=== PATIENT | female | born 2000 | race Caucasian/White ===

== ENCOUNTER 2023-11-20 17:56 | Emergency (ER) | payer MEDICAID ==
[~2023-11-20] VITALS: Ht 160 cm; Wt 100.0 kg
[2023-11-20 17:59] VITALS: O2SAT 98
[2023-11-20 20:46] LABS: CLARITY URINE CLEAR (CLEAR); COLOR URINE YELLOW (YELLOW); GLUCOSE URINE NEGATIVE (NEGATIVE); KETONES URINE 2+ (NEGATIVE); LEUKOCYTE ESTERASE URINE TRACE (NEGATIVE); NITRITE URINE NEGATIVE (NEGATIVE); OCCULT BLOOD URINE NEGATIVE (NEGATIVE); PROTEIN URINE NEGATIVE (NEGATIVE); SPECIFIC GRAVITY URINE 1.012 (1.005-1.030)
[2023-11-20 20:57] LABS: *AMPHETAMINES SCREEN URINE NEGATIVE (NEGATIVE); *BARBITURATES SCREEN URINE NEGATIVE (NEGATIVE); *BENZODIAZEPINES SCREEN URINE NEGATIVE (NEGATIVE); *COCAINE SCREEN URINE NEGATIVE (NEGATIVE)
[2023-11-20 20:58] LABS: CANNABINOID URINE SCREEN NEGATIVE (NEGATIVE); ECSTASY MDMA SCREEN URINE NEGATIVE (NEGATIVE); METHADONE URINE SCREEN NEGATIVE (NEGATIVE); OPIATES URINE SCREEN NEGATIVE (NEGATIVE); PHENCYCLIDINE URINE SCREEN NEGATIVE (NEGATIVE)
[2023-11-20 21:16] LABS: BASOPHILS % 0.7 % (0.0-2.0); EOSINOPHILS % 0.4 % (0.0-5.0); HEMATOCRIT. 41.9 % (36.0-48.0); HEMOGLOBIN. 14.2 g/dL (12.0-16.0); LYMPHOCYTES % 28.6 % (20.0-50.0); MEAN CORPUSCULAR HGB CONC 33.8 g/dL (31.0-37.0); MEAN CORPUSCULAR VOLUME 94.7 fL (81.0-99.0); MEAN PLATELET VOLUME 9.1 fl (7.4-10.4); MONOCYTES % 6.6 % (2.0-8.0); NEUTROPHILS % 63.7 % (40.0-76.0); PLATELET 335 x1000/uL (130-400); RED BLOOD CELL COUNT 4.42 mill/uL (4.2-5.4); RED CELL DISTRIBUTION WIDTH 13.4 % (11.6-14.6); WHITE BLOOD COUNT 11.5 x1000/uL (4.5-11.0)
[2023-11-20 21:17] LABS: BACTERIA URINE TRACE; RBC URINE 0-2 /hpf (0-2); SQUAMOUS EPITHELIAL CELL URINE 1+ /lpf (RARE/1+); WBC URINE 0-2 /hpf (0-2)
[2023-11-20 21:21] LABS: CHLORIDE 107 mEq/L (98-107); POTASSIUM 3.6 mEq/L (3.5-5.1); SODIUM 139 mEq/L (136-145)
[2023-11-20 21:22] LABS: CALCIUM 9.7 mg/dL (8.7-10.4); CARBON DIOXIDE 23 mEq/L (21-32)
[2023-11-20 21:27] LABS: CREATININE 0.6 mg/dL (0.6-1.0); GLUCOSE 98 mg/dL (70-105); UREA NITROGEN BLOOD 7 mg/dL (9-23)
[2023-11-20 21:28] LABS: ETHANOL BLOOD < 10 mg/dL (<10); HCG SCREEN NEGATIVE
[2023-11-20 21:29] LABS: ACETAMINOPHEN < 2 ug/mL (10-30)
[2023-11-21] MEDS: LORAZEPAM 0.5MG TABLET PO ONE (00:07)
[2023-11-21] MEDS: NICOTINE 21MG PATCH TD ONE (09:00)
[2023-11-21 09:22] VITALS: BP 122/64; PULSE 75; RESP 18; TEMP 98.6
[2023-11-22] MEDS ORDERED: PROP20TA7 PO (01:18)
[2023-11-22] MEDS ORDERED: BUSP10TA4 PO (01:18)
[2023-11-22] MEDS ORDERED: HYDR50TA55 PO (01:18)
[2023-11-22] MEDS ORDERED: ALBU4TAB6 MT (01:18)
[2023-11-24] MEDS ORDERED: CIPR-263 MT (12:27)
== END 2023-11-21 12:00 | disposition home or self-care (01) ==
LOC: ER 17:56
DX: R45.851 Suicidal ideations (principal); F41.9 Anxiety disorder, unspecified; F32.9 Major depressive disorder, single episode, unspecified
CPT/HCPCS: 36415; 80048; 80305; 80307; 80320; 80329; 81003; 81025; 84703; 85025; 99283; G0480

== ENCOUNTER 2023-11-25 23:06 | Emergency (ER) | payer OTHER, MEDICAID ==
[~2023-11-25] VITALS: Ht 160 cm; Wt 82.0 kg
[~2023-11-25 23:06] MED LIST: ALBU4TAB6 MT; BUSP10TA4 PO; CIPR-263 MT; HYDR50TA55 PO; PROP20TA7 PO
[2023-11-25 23:22] VITALS: O2SAT 100
[2023-11-26 00:16] LABS: BASOPHILS % 0.6 % (0.0-2.0); EOSINOPHILS % 0.6 % (0.0-5.0); HEMATOCRIT. 41.7 % (36.0-48.0); HEMOGLOBIN. 14.2 g/dL (12.0-16.0); LYMPHOCYTES % 29.6 % (20.0-50.0); MEAN CORPUSCULAR HEMOGLOBIN 31.9 pg (28.0-32.0); MEAN CORPUSCULAR HGB CONC 34.1 g/dL (31.0-37.0); MEAN CORPUSCULAR VOLUME 93.5 fL (81.0-99.0); MEAN PLATELET VOLUME 9.6 fl (7.4-10.4); MONOCYTES % 5.5 % (2.0-8.0); NEUTROPHILS % 63.7 % (40.0-76.0); PLATELET 323 x1000/uL (130-400); RED BLOOD CELL COUNT 4.46 mill/uL (4.2-5.4); RED CELL DISTRIBUTION WIDTH 13.6 % (11.6-14.6); WHITE BLOOD COUNT 9.5 x1000/uL (4.5-11.0)
[2023-11-26 00:29] LABS: CHLORIDE 109 mEq/L (98-107); POTASSIUM 3.6 mEq/L (3.5-5.1); SODIUM 141 mEq/L (136-145)
[2023-11-26 00:30] LABS: CALCIUM 9.6 mg/dL (8.7-10.4); CARBON DIOXIDE 25 mEq/L (21-32)
[2023-11-26 00:35] LABS: CREATININE 0.6 mg/dL (0.6-1.0); GLUCOSE 107 mg/dL (70-105); UREA NITROGEN BLOOD 8 mg/dL (9-23)
[2023-11-26 01:40] LABS: CLARITY URINE CLOUDY (CLEAR); COLOR URINE YELLOW (YELLOW); GLUCOSE URINE NEGATIVE (NEGATIVE); KETONES URINE TRACE (NEGATIVE); LEUKOCYTE ESTERASE URINE TRACE (NEGATIVE); NITRITE URINE NEGATIVE (NEGATIVE); OCCULT BLOOD URINE NEGATIVE (NEGATIVE); PROTEIN URINE TRACE (NEGATIVE); SPECIFIC GRAVITY URINE 1.029 (1.005-1.030)
[2023-11-26 02:04] LABS: BACTERIA URINE 1+; RBC URINE 0-2 /hpf (0-2); SQUAMOUS EPITHELIAL CELL URINE 1+ /lpf (RARE/1+); WBC URINE 0-2 /hpf (0-2)
[2023-11-26] MEDS: ACETAMINOPHEN 325MG TABLET PO ONE (02:20)
[2023-11-26 02:32] LABS: LACTIC ACID 2.1 mmol/L (0.4-2.0)
[2023-11-26] MEDS ORDERED: HYDR-4001 MT (03:49)
[2023-11-26 04:12] VITALS: BP 106/63; PULSE 81; RESP 18; TEMP 97.8
[2023-11-27] MEDS ORDERED: POTA-204 MT (03:57)
== END 2023-11-26 04:19 | disposition home or self-care (01) ==
LOC: ER 23:06
DX: R10.9 Unspecified abdominal pain (principal); F41.9 Anxiety disorder, unspecified; F32.A Depression, unspecified; Z88.8 Allergy status to other drugs, medicaments and biological substances
CPT/HCPCS: 36415; 71045; 80048; 81003; 81025; 83605; 85025; 93005; 99285

== ENCOUNTER 2023-11-27 00:03 | Emergency (ER) | payer OTHER, MEDICAID ==
[~2023-11-27] VITALS: Ht 160 cm; Wt 82.0 kg
[~2023-11-27 00:03] MED LIST changes: +HYDR-4001 MT
[2023-11-27 00:20] VITALS: O2SAT 99
[2023-11-27 00:42] LABS: BASOPHILS % 0.6 % (0.0-2.0); EOSINOPHILS % 0.9 % (0.0-5.0); HEMATOCRIT. 41.7 % (36.0-48.0); HEMOGLOBIN. 14.1 g/dL (12.0-16.0); LYMPHOCYTES % 32.8 % (20.0-50.0); MEAN CORPUSCULAR HEMOGLOBIN 31.9 pg (28.0-32.0); MEAN CORPUSCULAR HGB CONC 33.8 g/dL (31.0-37.0); MEAN CORPUSCULAR VOLUME 94.3 fL (81.0-99.0); MEAN PLATELET VOLUME 9.5 fl (7.4-10.4); MONOCYTES % 5.2 % (2.0-8.0); NEUTROPHILS % 60.5 % (40.0-76.0); PLATELET 306 x1000/uL (130-400); RED BLOOD CELL COUNT 4.42 mill/uL (4.2-5.4); RED CELL DISTRIBUTION WIDTH 13.8 % (11.6-14.6); WHITE BLOOD COUNT 10.7 x1000/uL (4.5-11.0)
[2023-11-27 00:50] LABS: CHLORIDE 108 mEq/L (98-107); INR 1.1; PARTIAL THROMBOPLASTIN TIME 23.9 sec (23.4-31.0); POTASSIUM 3.3 mEq/L (3.5-5.1); PROTHROMBIN TIME 11.7 sec (9.6-11.0); SODIUM 139 mEq/L (136-145)
[2023-11-27 00:51] LABS: CALCIUM 9.4 mg/dL (8.7-10.4); CARBON DIOXIDE 23 mEq/L (21-32)
[2023-11-27 00:56] LABS: CREATININE 0.7 mg/dL (0.6-1.0); GLUCOSE 115 mg/dL (70-105); UREA NITROGEN BLOOD 7 mg/dL (9-23)
[2023-11-27 01:06] LABS: TROPONIN I HIGH SENSITIVITY < 4 ng/L (3.0-34)
[2023-11-27 01:07] LABS: ETHANOL BLOOD < 10 mg/dL (<10)
[2023-11-27 01:09] VITALS: TEMP 99
[2023-11-27] MEDS: SODIUM CHLORIDE 0.9% 1,000 ML IV ONE (01:28)
[2023-11-27 02:17] LABS: HCG SCREEN NEGATIVE
[2023-11-27] MEDS: POTASSIUM CHLORIDE 20MEQ/PACKET PO NR (02:25)
[2023-11-27 03:31] LABS: CLARITY URINE CLEAR (CLEAR); COLOR URINE YELLOW (YELLOW); GLUCOSE URINE NEGATIVE (NEGATIVE); KETONES URINE TRACE (NEGATIVE); LEUKOCYTE ESTERASE URINE TRACE (NEGATIVE); NITRITE URINE NEGATIVE (NEGATIVE); OCCULT BLOOD URINE NEGATIVE (NEGATIVE); PH URINE 6.5 (4.5-8.0); PROTEIN URINE TRACE (NEGATIVE); SPECIFIC GRAVITY URINE 1.023 (1.005-1.030)
[2023-11-27 03:36] LABS: TROPONIN I HIGH SENSITIVITY < 4 ng/L (3.0-34)
[2023-11-27 03:44] LABS: *AMPHETAMINES SCREEN URINE NEGATIVE (NEGATIVE)
[2023-11-27 03:45] LABS: *BARBITURATES SCREEN URINE NEGATIVE (NEGATIVE); *BENZODIAZEPINES SCREEN URINE NEGATIVE (NEGATIVE); *COCAINE SCREEN URINE NEGATIVE (NEGATIVE); CANNABINOID URINE SCREEN NEGATIVE (NEGATIVE); ECSTASY MDMA SCREEN URINE NEGATIVE (NEGATIVE); METHADONE URINE SCREEN NEGATIVE (NEGATIVE); OPIATES URINE SCREEN NEGATIVE (NEGATIVE); PHENCYCLIDINE URINE SCREEN NEGATIVE (NEGATIVE)
[2023-11-27] MEDS ORDERED: POTA-204 MT (03:57)
[2023-11-27 05:11] LABS: SQUAMOUS EPITHELIAL CELL URINE 2+ /lpf (RARE/1+)
[2023-11-27 05:13] LABS: RBC URINE 0-2 /hpf (0-2)
[2023-11-27 05:15] LABS: BACTERIA URINE TRACE
[2023-11-27 05:25] VITALS: BP 142/42; PULSE 82; RESP 18
[2023-11-28] MEDS ORDERED: ONDA4TAB50 MT (03:56)
[2023-11-28] MEDS ORDERED: NITR-87 MT (21:07)
== END 2023-11-27 05:32 | disposition home or self-care (01) ==
LOC: ER 00:09
DX: R00.2 Palpitations (principal); E87.6 Hypokalemia; Z88.8 Allergy status to other drugs, medicaments and biological substances
CPT/HCPCS: 80305; 80048; 81003; 80320; 84703; 83880; 85025; 85610; 85730; 84484; 36415; 71045; 93005; 96360; 99285; J7030; G0480

== ENCOUNTER 2023-11-28 00:35 | Emergency (ER) | payer OTHER, MEDICAID ==
[~2023-11-28] VITALS: Ht 170.2 cm; Wt 106.0 kg
[~2023-11-28 00:35] MED LIST changes: +POTA-204 MT
[2023-11-28 00:38] VITALS: O2SAT 100
[2023-11-28 01:29] LABS: BASOPHILS % 0.5 % (0.0-2.0); EOSINOPHILS % 0.4 % (0.0-5.0); HEMATOCRIT. 41.7 % (36.0-48.0); HEMOGLOBIN. 14.1 g/dL (12.0-16.0); LYMPHOCYTES % 22.1 % (20.0-50.0); MEAN CORPUSCULAR HEMOGLOBIN 32.1 pg (28.0-32.0); MEAN CORPUSCULAR HGB CONC 33.9 g/dL (31.0-37.0); MEAN CORPUSCULAR VOLUME 94.7 fL (81.0-99.0); MEAN PLATELET VOLUME 9.6 fl (7.4-10.4); MONOCYTES % 6.4 % (2.0-8.0); NEUTROPHILS % 70.6 % (40.0-76.0); PLATELET 336 x1000/uL (130-400); RED CELL DISTRIBUTION WIDTH 13.6 % (11.6-14.6); WHITE BLOOD COUNT 12.7 x1000/uL (4.5-11.0)
[2023-11-28 01:39] LABS: CHLORIDE 107 mEq/L (98-107); POTASSIUM 3.4 mEq/L (3.5-5.1); SODIUM 139 mEq/L (136-145)
[2023-11-28 01:40] LABS: CALCIUM 9.5 mg/dL (8.7-10.4); CARBON DIOXIDE 24 mEq/L (21-32)
[2023-11-28 01:43] LABS: HCG SCREEN NEGATIVE
[2023-11-28 01:45] LABS: CREATININE 0.6 mg/dL (0.6-1.0); GLUCOSE 91 mg/dL (70-105); UREA NITROGEN BLOOD 5 mg/dL (9-23)
[2023-11-28] MEDS: SODIUM CHLORIDE 0.9% 1,000 ML IV ONE (01:56)
[2023-11-28] MEDS: ACETAMINOPHEN 1000MG/100ML 100 ML IV ONE (01:56)
[2023-11-28 02:10] LABS: ETHANOL BLOOD < 10 mg/dL (<10); TROPONIN I HIGH SENSITIVITY < 4 ng/L (3.0-34)
[2023-11-28 02:14] VITALS: TEMP 98.9
[2023-11-28] MEDS ORDERED: ONDA4TAB50 MT (03:56)
[2023-11-28] MEDS ORDERED: MAGNESIUM/ALUMINUM HYDROXIDE/SIMETHICONE 30ML UDC PO NR (04:00)
[2023-11-28] MEDS: ONDANSETRON HCL 4MG/2ML INJ IV NR (04:38)
[2023-11-28 04:50] VITALS: BP 102/66; PULSE 80; RESP 18
[2023-11-28] MEDS ORDERED: NITR-87 MT (21:07)
== END 2023-11-28 04:54 | disposition home or self-care (01) ==
LOC: ER 00:35
DX: R11.0 Nausea (principal); R53.83 Other fatigue; F41.9 Anxiety disorder, unspecified; J45.909 Unspecified asthma, uncomplicated; F32.9 Major depressive disorder, single episode, unspecified; Z79.899 Other long term (current) drug therapy; Z20.822 Contact with and (suspected) exposure to COVID-19
CPT/HCPCS: 80048; 80320; 84703; 83880; 85025; 84484; 36415; 71045; 93005; 96365; 96375; 99285; 87426; J2405; J7030; G0480; J0131

== ENCOUNTER 2023-11-28 15:45 | Emergency (ER) | payer OTHER, MEDICAID ==
[~2023-11-28] VITALS: Ht 165.1 cm; Wt 85.0 kg
[~2023-11-28 15:45] MED LIST changes: +ONDA4TAB50 MT
[2023-11-28 15:47] VITALS: O2SAT 99
[2023-11-28] MEDS: DICYCLOMINE 10 MG/5 ML ORAL SYR PO STA (16:38)
[2023-11-28 17:13] LABS: BASOPHILS % 0.7 % (0.0-2.0); EOSINOPHILS % 1.2 % (0.0-5.0); HEMATOCRIT. 43.8 % (36.0-48.0); HEMOGLOBIN. 14.5 g/dL (12.0-16.0); LYMPHOCYTES % 20.3 % (20.0-50.0); MEAN CORPUSCULAR HEMOGLOBIN 31.7 pg (28.0-32.0); MEAN CORPUSCULAR HGB CONC 33.2 g/dL (31.0-37.0); MEAN CORPUSCULAR VOLUME 95.5 fL (81.0-99.0); MEAN PLATELET VOLUME 9.8 fl (7.4-10.4); MONOCYTES % 4.9 % (2.0-8.0); NEUTROPHILS % 72.9 % (40.0-76.0); PLATELET 325 x1000/uL (130-400); RED BLOOD CELL COUNT 4.59 mill/uL (4.2-5.4); RED CELL DISTRIBUTION WIDTH 13.7 % (11.6-14.6); WHITE BLOOD COUNT 11.6 x1000/uL (4.5-11.0)
[2023-11-28 17:15] LABS: CHLORIDE 107 mEq/L (98-107); POTASSIUM 3.8 mEq/L (3.5-5.1); SODIUM 140 mEq/L (136-145)
[2023-11-28 17:16] LABS: CALCIUM 9.9 mg/dL (8.7-10.4); CARBON DIOXIDE 27 mEq/L (21-32)
[2023-11-28 17:21] LABS: CREATININE 0.7 mg/dL (0.6-1.0); GLUCOSE 103 mg/dL (70-105)
[2023-11-28 17:23] LABS: ALANINE AMINOTRANSFERASE 17 IU/L (10-49); ASPARTATE AMINOTRANSFERASE 15 IU/L (<34); BILIRUBIN TOTAL 1.2 mg/dL (0.1-1.0); PROTEIN TOTAL 7.5 g/dL (6.0-8.3)
[2023-11-28 17:27] LABS: HCG SCREEN NEGATIVE; UREA NITROGEN BLOOD < 5 mg/dL (9-23)
[2023-11-28] MEDS: MAGNESIUM/ALUMINUM HYDROXIDE/SIMETHICONE 30ML UDC PO ONE (18:30)
[2023-11-28] MEDS: LORAZEPAM 1MG TABLET PO ONE (18:30)
[2023-11-28 20:38] LABS: CLARITY URINE CLOUDY (CLEAR); COLOR URINE YELLOW (YELLOW); GLUCOSE URINE NEGATIVE (NEGATIVE); KETONES URINE 3+ (NEGATIVE); LEUKOCYTE ESTERASE URINE 1+ (NEGATIVE); NITRITE URINE NEGATIVE (NEGATIVE); OCCULT BLOOD URINE NEGATIVE (NEGATIVE); PH URINE 5.5 (4.5-8.0); PROTEIN URINE NEGATIVE (NEGATIVE); SPECIFIC GRAVITY URINE 1.023 (1.005-1.030)
[2023-11-28 21:03] LABS: BACTERIA URINE 3+; RBC URINE 0-2 /hpf (0-2); SQUAMOUS EPITHELIAL CELL URINE 2+ /lpf (RARE/1+)
[2023-11-28] MEDS ORDERED: NITR-87 MT (21:07)
[2023-11-28 21:16] VITALS: BP 124/53; PULSE 85; RESP 20; TEMP 98.5
== END 2023-11-28 21:19 | disposition home or self-care (01) ==
LOC: ER 15:45
DX: R10.84 Generalized abdominal pain (principal); F41.9 Anxiety disorder, unspecified; J45.909 Unspecified asthma, uncomplicated; F32.A Depression, unspecified; Z88.8 Allergy status to other drugs, medicaments and biological substances
CPT/HCPCS: 36415; 74176; 80053; 81003; 81025; 84703; 85025; 99284

== ENCOUNTER 2023-11-30 00:45 | Emergency (ER) | payer OTHER, MEDICAID ==
[~2023-11-30] VITALS: Ht 157.5 cm; Wt 104.0 kg
[~2023-11-30 00:45] MED LIST changes: +NITR-87 MT
[2023-11-30 00:51] VITALS: O2SAT 99
[2023-11-30 01:41] VITALS: TEMP 98.4
[2023-11-30 01:51] LABS: BASOPHILS % 1.1 % (0.0-2.0); EOSINOPHILS % 1.1 % (0.0-5.0); HEMATOCRIT. 41.6 % (36.0-48.0); HEMOGLOBIN. 13.8 g/dL (12.0-16.0); MEAN CORPUSCULAR HEMOGLOBIN 31.3 pg (28.0-32.0); MEAN CORPUSCULAR HGB CONC 33.3 g/dL (31.0-37.0); MEAN CORPUSCULAR VOLUME 94.1 fL (81.0-99.0); MEAN PLATELET VOLUME 10.4 fl (7.4-10.4); MONOCYTES % 4.7 % (2.0-8.0); NEUTROPHILS % 64.1 % (40.0-76.0); PLATELET 284 x1000/uL (130-400); RED BLOOD CELL COUNT 4.42 mill/uL (4.2-5.4); RED CELL DISTRIBUTION WIDTH 13.5 % (11.6-14.6); WHITE BLOOD COUNT 14.5 x1000/uL (4.5-11.0)
[2023-11-30 02:07] LABS: CLARITY URINE CLEAR (CLEAR); COLOR URINE YELLOW (YELLOW); GLUCOSE URINE NEGATIVE (NEGATIVE); KETONES URINE 2+ (NEGATIVE); LEUKOCYTE ESTERASE URINE NEGATIVE (NEGATIVE); NITRITE URINE NEGATIVE (NEGATIVE); OCCULT BLOOD URINE NEGATIVE (NEGATIVE); PROTEIN URINE NEGATIVE (NEGATIVE); UROBILINOGEN URINE 0.2 E.U./dL (0.2-1.0)
[2023-11-30 02:20] LABS: CHLORIDE 107 mEq/L (98-107); POTASSIUM 3.4 mEq/L (3.5-5.1); SODIUM 139 mEq/L (136-145)
[2023-11-30 02:21] LABS: CALCIUM 9.5 mg/dL (8.7-10.4); CARBON DIOXIDE 22 mEq/L (21-32)
[2023-11-30 02:26] LABS: CREATININE 0.5 mg/dL (0.6-1.0); GLUCOSE 89 mg/dL (70-105)
[2023-11-30 02:27] LABS: HCG SCREEN NEGATIVE
[2023-11-30 03:52] LABS: UREA NITROGEN BLOOD < 5 mg/dL (9-23)
[2023-11-30 06:10] VITALS: BP 115/61; PULSE 70; RESP 15
[2023-12-01] MEDS ORDERED: HYDR-459 MT (07:44)
== END 2023-11-30 06:45 | disposition home or self-care (01) ==
LOC: ER 00:45 → EDUNIT# 00:45 → ER 06:45
DX: R53.1 Weakness (principal); R10.9 Unspecified abdominal pain; J45.909 Unspecified asthma, uncomplicated; Z91.018 Allergy to other foods; Z88.6 Allergy status to analgesic agent; Z79.899 Other long term (current) drug therapy
CPT/HCPCS: 36415; 71045; 80048; 81003; 83605; 84703; 85025; 93005; 99285

== ENCOUNTER 2023-11-30 18:30 | Emergency (ER) | payer OTHER, MEDICAID ==
[~2023-11-30] VITALS: Ht 160 cm; Wt 90.0 kg
[2023-11-30 18:31] VITALS: BP 127/52; PULSE 76; RESP 18; TEMP 98.3; O2SAT 97
[2023-12-01] MEDS ORDERED: HYDR-459 MT (07:44)
== END 2023-11-30 23:06 | disposition left against medical advice (07) ==
LOC: ER 18:30
DX: R06.02 Shortness of breath (principal); Z53.21 Procedure and treatment not carried out due to patient leaving prior to being seen by health care provider

== ENCOUNTER 2023-11-30 22:29 | Emergency (ER) | payer OTHER, MEDICAID ==
[~2023-11-30] VITALS: Ht 162.6 cm; Wt 104.0 kg
[2023-11-30 22:39] VITALS: O2SAT 98
[2023-11-30 23:35] LABS: CLARITY URINE CLOUDY (CLEAR); COLOR URINE DARK YELLOW (YELLOW); GLUCOSE URINE NEGATIVE (NEGATIVE); KETONES URINE 1+ (NEGATIVE); LEUKOCYTE ESTERASE URINE TRACE (NEGATIVE); NITRITE URINE NEGATIVE (NEGATIVE); OCCULT BLOOD URINE NEGATIVE (NEGATIVE); PROTEIN URINE TRACE (NEGATIVE); SPECIFIC GRAVITY URINE 1.026 (1.005-1.030); UROBILINOGEN URINE 0.2 E.U./dL (0.2-1.0)
[2023-11-30 23:46] LABS: *AMPHETAMINES SCREEN URINE NEGATIVE (NEGATIVE); *BARBITURATES SCREEN URINE NEGATIVE (NEGATIVE); *BENZODIAZEPINES SCREEN URINE NEGATIVE (NEGATIVE); *COCAINE SCREEN URINE NEGATIVE (NEGATIVE); METHADONE URINE SCREEN NEGATIVE (NEGATIVE)
[2023-11-30 23:47] LABS: CANNABINOID URINE SCREEN NEGATIVE (NEGATIVE); ECSTASY MDMA SCREEN URINE NEGATIVE (NEGATIVE); OPIATES URINE SCREEN NEGATIVE (NEGATIVE); PHENCYCLIDINE URINE SCREEN NEGATIVE (NEGATIVE)
[2023-11-30 23:49] LABS: BASOPHILS % 0.8 % (0.0-2.0); EOSINOPHILS % 0.4 % (0.0-5.0); HEMATOCRIT. 41.4 % (36.0-48.0); HEMOGLOBIN. 13.9 g/dL (12.0-16.0); LYMPHOCYTES % 19.2 % (20.0-50.0); MEAN CORPUSCULAR HEMOGLOBIN 31.5 pg (28.0-32.0); MEAN CORPUSCULAR HGB CONC 33.5 g/dL (31.0-37.0); MEAN CORPUSCULAR VOLUME 94.1 fL (81.0-99.0); MEAN PLATELET VOLUME 9.6 fl (7.4-10.4); MONOCYTES % 4.9 % (2.0-8.0); NEUTROPHILS % 74.7 % (40.0-76.0); PLATELET 325 x1000/uL (130-400); RED CELL DISTRIBUTION WIDTH 13.3 % (11.6-14.6); WHITE BLOOD COUNT 12.8 x1000/uL (4.5-11.0)
[2023-11-30 23:56] LABS: CHLORIDE 108 mEq/L (98-107); POTASSIUM 3.4 mEq/L (3.5-5.1); SODIUM 141 mEq/L (136-145)
[2023-11-30 23:57] LABS: CALCIUM 9.9 mg/dL (8.7-10.4); CARBON DIOXIDE 24 mEq/L (21-32)
[2023-12-01 00:02] LABS: CREATININE 0.6 mg/dL (0.6-1.0); GLUCOSE 110 mg/dL (70-105)
[2023-12-01 00:04] LABS: ACETAMINOPHEN < 2 ug/mL (10-30)
[2023-12-01 00:08] LABS: HCG SCREEN NEGATIVE
[2023-12-01 00:09] LABS: ETHANOL BLOOD < 10 mg/dL (<10); UREA NITROGEN BLOOD < 5 mg/dL (9-23)
[2023-12-01 02:13] LABS: SQUAMOUS EPITHELIAL CELL URINE 1+ /lpf (RARE/1+)
[2023-12-01 02:16] LABS: WBC URINE 0-2 /hpf (0-2)
[2023-12-01 02:42] LABS: RBC URINE 0-2 /hpf (0-2)
[2023-12-01 02:44] LABS: BACTERIA URINE TRACE; CALCIUM OXALATE CRYSTALS URINE 1+ /lpf
[2023-12-01 02:49] LABS: ALANINE AMINOTRANSFERASE 16 IU/L (10-49)
[2023-12-01 02:50] LABS: ALBUMIN 4.7 g/dL (3.2-4.8); ASPARTATE AMINOTRANSFERASE 13 IU/L (<34); BILIRUBIN DIRECT 0.3 mg/dL (<=3.0); BILIRUBIN TOTAL 0.8 mg/dL (0.1-1.0); PROTEIN TOTAL 7.1 g/dL (6.0-8.3)
[2023-12-01] MEDS ORDERED: HYDR-459 MT (07:44)
[2023-12-01 08:43] VITALS: BP 128/86; PULSE 76; RESP 16; TEMP 98.1
[2023-12-02] MEDS ORDERED: EPIN0.3P3 IM (01:19)
[2023-12-02] MEDS ORDERED: P20 MT (01:19)
[2023-12-02] MEDS ORDERED: DIPH25CA83 PO (01:19)
[2023-12-02] MEDS ORDERED: ALBU6.7H15 INH (01:23)
[2023-12-02] MEDS ORDERED: HYDR28.461 TP (14:56)
[2023-12-02] MEDS ORDERED: FAMO-135 MT (14:56)
== END 2023-12-01 08:45 | disposition home or self-care (01) ==
LOC: ER 22:29
DX: R45.851 Suicidal ideations (principal); J45.909 Unspecified asthma, uncomplicated; F41.1 Generalized anxiety disorder; Z87.440 Personal history of urinary (tract) infections; Z79.899 Other long term (current) drug therapy
CPT/HCPCS: 36415; 80048; 80076; 80305; 80307; 80320; 80329; 81003; 81025; 84703; 85025; 99283; G0480

== ENCOUNTER 2023-12-01 21:13 | Emergency (ER) | payer OTHER, MEDICAID ==
[~2023-12-01] VITALS: Ht 160 cm; Wt 102.0 kg
[~2023-12-01 21:13] MED LIST changes: +HYDR-459 MT
[2023-12-01 21:20] VITALS: BP 126/67; TEMP 99
[2023-12-01] MEDS: METHYLPREDNISOLONE SOD SUCC 125MG/2ML (ACT-O-VIAL) IM STA (22:35)
[2023-12-01] MEDS: DIPHENHYDRAMINE 50MG/ML VIAL IM ONE (22:45)
[2023-12-01] MEDS: FAMOTIDINE 20MG TABLET PO ONE (22:45)
[2023-12-01 23:10] VITALS: PULSE 72; RESP 20; O2SAT 97
[2023-12-01] MEDS: IPRATROPIUM BROMIDE (0.02%) 0.5MG/2.5ML NEB HHN STA (23:10)
[2023-12-01] MEDS: ALBUTEROL (0.083%) 2.5MG/3ML NEB HHN STA (23:11)
[2023-12-02] MEDS ORDERED: P20 MT (01:19)
[2023-12-02] MEDS ORDERED: EPIN0.3P3 IM (01:19)
[2023-12-02] MEDS ORDERED: DIPH25CA83 PO (01:19)
[2023-12-02] MEDS ORDERED: ALBU6.7H15 INH (01:23)
[2023-12-02] MEDS ORDERED: HYDR28.461 TP (14:56)
[2023-12-02] MEDS ORDERED: FAMO-135 MT (14:56)
== END 2023-12-02 01:37 | disposition home or self-care (01) ==
LOC: ER 21:13
DX: T78.40XA Allergy, unspecified, initial encounter (principal); J45.901 Unspecified asthma with (acute) exacerbation; Z91.040 Latex allergy status; Z88.6 Allergy status to analgesic agent; Z79.899 Other long term (current) drug therapy; X58.XXXA Exposure to other specified factors, initial encounter
CPT/HCPCS: 94644; 96372; 99285; J1200; J2919; Z7610 ×2

== ENCOUNTER 2023-12-02 12:34 | Emergency (ER) | payer OTHER, MEDICAID ==
[~2023-12-02] VITALS: Ht 170.2 cm; Wt 80.0 kg
[~2023-12-02 12:34] MED LIST changes: +ALBU6.7H15 INH; +DIPH25CA83 PO; +EPIN0.3P3 IM; +P20 MT
[2023-12-02 12:36] VITALS: BP 140/73; PULSE 85; RESP 16; TEMP 98.5; O2SAT 97
[2023-12-02] MEDS: FAMOTIDINE 20MG TABLET PO ONE (13:43)
[2023-12-02] MEDS ORDERED: HYDR28.461 TP (14:56)
[2023-12-02] MEDS ORDERED: FAMO-135 MT (14:56)
== END 2023-12-02 16:04 | disposition home or self-care (01) ==
LOC: ER 12:34
DX: L25.9 Unspecified contact dermatitis, unspecified cause (principal); B34.9 Viral infection, unspecified; J45.909 Unspecified asthma, uncomplicated; F19.90 Other psychoactive substance use, unspecified, uncomplicated; Z91.040 Latex allergy status; Z88.8 Allergy status to other drugs, medicaments and biological substances
CPT/HCPCS: 99283

== ENCOUNTER 2023-12-03 00:08 | Emergency (ER) | payer OTHER, MEDICAID ==
[~2023-12-03] VITALS: Ht 160 cm; Wt 100.0 kg
[~2023-12-03 00:08] MED LIST changes: +FAMO-135 MT; +HYDR28.461 TP
[2023-12-03 00:16] VITALS: O2SAT 97
[2023-12-03 02:41] LABS: BASOPHILS % 0.4 % (0.0-2.0); EOSINOPHILS % 0.3 % (0.0-5.0); HEMATOCRIT. 42.3 % (36.0-48.0); HEMOGLOBIN. 13.8 g/dL (12.0-16.0); LYMPHOCYTES % 17.9 % (20.0-50.0); MEAN CORPUSCULAR HEMOGLOBIN 31.2 pg (28.0-32.0); MEAN CORPUSCULAR HGB CONC 32.6 g/dL (31.0-37.0); MEAN CORPUSCULAR VOLUME 95.6 fL (81.0-99.0); MEAN PLATELET VOLUME 9.7 fl (7.4-10.4); MONOCYTES % 5.6 % (2.0-8.0); NEUTROPHILS % 75.8 % (40.0-76.0); PLATELET 333 x1000/uL (130-400); RED BLOOD CELL COUNT 4.43 mill/uL (4.2-5.4); RED CELL DISTRIBUTION WIDTH 14.2 % (11.6-14.6); WHITE BLOOD COUNT 22.7 x1000/uL (4.5-11.0)
[2023-12-03 02:52] LABS: CHLORIDE 109 mEq/L (98-107); POTASSIUM 3.6 mEq/L (3.5-5.1); SODIUM 143 mEq/L (136-145)
[2023-12-03 02:53] LABS: CALCIUM 9.5 mg/dL (8.7-10.4); CARBON DIOXIDE 27 mEq/L (21-32)
[2023-12-03 02:58] LABS: CREATININE 0.6 mg/dL (0.6-1.0); GLUCOSE 105 mg/dL (70-105)
[2023-12-03 02:59] LABS: UREA NITROGEN BLOOD 8 mg/dL (9-23)
[2023-12-03 03:00] LABS: ACETAMINOPHEN < 2 ug/mL (10-30); ALANINE AMINOTRANSFERASE 16 IU/L (10-49); ALBUMIN 4.7 g/dL (3.2-4.8); ASPARTATE AMINOTRANSFERASE 12 IU/L (<34); BILIRUBIN DIRECT 0.2 mg/dL (<=3.0)
[2023-12-03 03:01] LABS: BILIRUBIN TOTAL 0.5 mg/dL (0.1-1.0); PROTEIN TOTAL 6.8 g/dL (6.0-8.3)
[2023-12-03 03:15] LABS: ETHANOL BLOOD < 10 mg/dL (<10)
[2023-12-03] MEDS: LORAZEPAM 1MG TABLET PO ONE (03:29)
[2023-12-03 03:34] LABS: HCG SCREEN NEGATIVE
[2023-12-03 06:01] LABS: CLARITY URINE CLOUDY (CLEAR); COLOR URINE YELLOW (YELLOW); GLUCOSE URINE NEGATIVE (NEGATIVE); KETONES URINE NEGATIVE (NEGATIVE); LEUKOCYTE ESTERASE URINE NEGATIVE (NEGATIVE); NITRITE URINE NEGATIVE (NEGATIVE); OCCULT BLOOD URINE NEGATIVE (NEGATIVE); PROTEIN URINE TRACE (NEGATIVE); SPECIFIC GRAVITY URINE 1.033 (1.005-1.030)
[2023-12-03 06:10] LABS: *AMPHETAMINES SCREEN URINE NEGATIVE (NEGATIVE); *BARBITURATES SCREEN URINE NEGATIVE (NEGATIVE); *BENZODIAZEPINES SCREEN URINE NEGATIVE (NEGATIVE); *COCAINE SCREEN URINE NEGATIVE (NEGATIVE); CANNABINOID URINE SCREEN NEGATIVE (NEGATIVE); ECSTASY MDMA SCREEN URINE NEGATIVE (NEGATIVE); METHADONE URINE SCREEN NEGATIVE (NEGATIVE); OPIATES URINE SCREEN NEGATIVE (NEGATIVE); PHENCYCLIDINE URINE SCREEN NEGATIVE (NEGATIVE)
[2023-12-03 06:28] LABS: BACTERIA URINE 2+; RBC URINE 0-2 /hpf (0-2); SQUAMOUS EPITHELIAL CELL URINE 1+ /lpf (RARE/1+); WBC URINE 0-2 /hpf (0-2); YEAST URINE NONE SEEN
[2023-12-03] MEDS ORDERED: ALBUTEROL 6.7GM HFA INHALER ORI ONE (10:30)
[2023-12-03] MEDS ORDERED: ALBUTEROL (0.083%) 2.5MG/3ML NEB HHN NR (10:45)
[2023-12-03] MEDS: ALBUTEROL 6.7GM HFA INHALER ORI ONE (11:45)
[2023-12-03 15:10] LABS: BASOPHILS % 0.6 % (0.0-2.0); EOSINOPHILS % 0.2 % (0.0-5.0); HEMATOCRIT. 41.8 % (36.0-48.0); HEMOGLOBIN. 13.6 g/dL (12.0-16.0); LYMPHOCYTES % 24.9 % (20.0-50.0); MEAN CORPUSCULAR HEMOGLOBIN 31.3 pg (28.0-32.0); MEAN CORPUSCULAR HGB CONC 32.5 g/dL (31.0-37.0); MEAN CORPUSCULAR VOLUME 96.4 fL (81.0-99.0); MEAN PLATELET VOLUME 9.9 fl (7.4-10.4); MONOCYTES % 7.2 % (2.0-8.0); NEUTROPHILS % 67.1 % (40.0-76.0); PLATELET 257 x1000/uL (130-400); RED BLOOD CELL COUNT 4.33 mill/uL (4.2-5.4); RED CELL DISTRIBUTION WIDTH 14.2 % (11.6-14.6); WHITE BLOOD COUNT 12.2 x1000/uL (4.5-11.0)
[2023-12-03] MEDS: SERTRALINE HCL 25MG TABLET PO SCH (16:15)
[2023-12-03 18:41] VITALS: BP 126/71; PULSE 86; RESP 17; TEMP 98.2
== END 2023-12-03 18:51 ==
LOC: ER 00:08
DX: R45.851 Suicidal ideations (principal); J45.909 Unspecified asthma, uncomplicated; Z20.822 Contact with and (suspected) exposure to COVID-19; Z00.00 Encounter for general adult medical examination without abnormal findings; Z91.018 Allergy to other foods; Z91.040 Latex allergy status; Z88.6 Allergy status to analgesic agent; Z79.899 Other long term (current) drug therapy
CPT/HCPCS: 80076; 80305; 80048; 81003; 80307; 80329; 80320; 84703; 85025; 36415; 99285; 87426; Z7610; G0480